=== PATIENT | male | born 1950 | race Caucasian/White ===

== ENCOUNTER → 2017-01-06 | Outpatient (CLI) | payer OTHER ==
[~2017-01-06] MED LIST: ACCUPRIL40 MG PO; ADVIL PM CAPLE1 EACH PO; ALLEGRA180 MG PO; ALPRAZOLAM PO; ASPIRIN81 M1 PO; ASPIRIN81 M2 PO; CALCIUM 600 + D1 TAB PO; CRESTOR PO; FERRO-TIME325 MG PO; FIBER500 MG PO; FISH OIL 1,0001 CAP PO; FLOMAX0.4 M1 PO; HYDROCHLOROTHIA25 MG PO; LOVENOX40 MG/0.4 INJ; MEVACOR PO; NASACORT AQ16.5 GM; NORCO 10/3251 TAB DOB; OMEPRAZOLE20 M1 PO; PERCOCET 10/3251 TAB PO; PROBIOTIC1 EAC2 PO; TRICOR134 MG PO; TRIGLIDE160 M1 PO; VITAMIN E400 UNI1 PO; XARELTO10 MG PO; ZYLOPRIM100 MG PO
--- NOTE | ~2017-01-06 | US85 ---
[facility] A Service of [facility] & [facility] RADIOLOGY TEXT RESULTS PATIENT: MADELEINE PINA LOCATION: CNIV : 46 UNIT #: [id number] AGE: [address]: Blake Evans MD SEX: M ORDER DR: [id number] [facility] [address] [place], [place] [address] [id number] O MR#: [id number] Acc #: [id number] NAME: MADELEINE PINA. : 1950 SEX: M STUDY DATE/TIME: 01/06/2017 16:30 UNIT: CNIV ROOM: STUDY DESCRIPTION: FAUSTINO Tom Unilat or Ltd Stdy Attending Physician: Blake Evans M.D. Referring Physician: Blake Evans M.D. Ordering Physician: Blkae Evans M.D. Primary Care Physician: Blake Evans M.D. MEDICAL IMAGING REPORT This report is preliminary unless electronic signature is present EXAM Right lower extremity venous duplex HISTORY Right lower extremity pain in the calf for 4 days. Knot in the right calf on the medial side. FINDINGS Venous duplex imaging of the right lower extremity reveals patent right femoral, popliteal, tibial, and peroneal veins with normal venous filling in all of the visualized veins. No evidence of thrombosis of the deep veins is seen. On the medial aspect of the mid calf in the popliteal area, there is a 6-7 mm area which is hyperechoic with mixed echoes. This is not compressible. This is subcutaneous. IMPRESSION No evidence of DVT is seen in the right lower extremity. Possible thrombosed varicose veins are seen on the right medial calf. Correlation is recommended for a possible small hematoma. Dictated by... Jason Mcdaniels M.D. THIS IS AN ELECTRONICALLY VERIFIED REPORT Jason Mcdaniels M.D. at 01/09/2017 10:50 AM /des TD: 01/07/2017 09:50 JOB #: [id number] [facility] A Service of [facility] & [facility] RADIOLOGY TEXT RESULTS PATIENT: MADELEINE PINA LOCATION: [facility] #: [id number] : [birth year] UNIT #: [id number] AGE: [address]: Blake Evans MD SEX: M ORDER DR: MEDICAL IMAGING REPORT Page 1 of 1 COPY
== END | disposition home or self-care (01) ==
LOC: CNIV 16:08
DX: M79.89 Other specified soft tissue disorders (principal); R22.41 Localized swelling, mass and lump, right lower limb
CPT/HCPCS: 93971

== ENCOUNTER 2017-03-16 19:01 | Emergency (ER) | payer OTHER ==
[~2017-03-16] VITALS: Ht 160 cm; Wt 77.1 kg
--- NOTE | ~2017-03-16 | CR20 ---
[facility] A Service of [facility] & [facility] RADIOLOGY TEXT RESULTS PATIENT: MADELEINE PINA LOCATION: [facility] : 46 UNIT #: [id number] AGE: [address]: Karma Ray APRN SEX: M ORDER DR: [id number] [facility] [address] [place], [place] [address] [id number] MR#: [id number] Acc #: [id number] NAME: MADELEINE PINA. : 1950 SEX: M STUDY DATE/TIME: 03/16/2017 22:08 UNIT: [facility] ROOM: STUDY DESCRIPTION: CR Ankle Min 3 Views Lt Attending Physician: Karma Ray A.P.R.N. Ordering Physician: Karma Ray A.P.R.N. Primary Care Physician: Blake Evans M.D. MEDICAL IMAGING REPORT This report is preliminary unless electronic signature is present EXAM Left ankle INDICATION Left ankle swelling and pain. FINDINGS 3 views of the left ankle without comparison. There is no acute fracture or dislocation. There is some medial soft tissue swelling. No foreign body. IMPRESSION Medial soft tissue swelling. Dictated by... Ludwig Smith M.D. THIS IS AN ELECTRONICALLY VERIFIED REPORT Ludwig Smith M.D. at 03/17/2017 10:12 AM JARVIS/des TD: 03/17/2017 09:34 JOB #: [id number] MEDICAL IMAGING REPORT Page 1 of 1 COPY
== END 2017-03-16 23:20 | disposition home or self-care (01) ==
LOC: CED 19:01 → CFTX 19:01
DX: S90.02XA Contusion of left ankle, initial encounter (principal); I10 Essential (primary) hypertension; E78.5 Hyperlipidemia, unspecified; F17.200 Nicotine dependence, unspecified, uncomplicated; Z79.899 Other long term (current) drug therapy; X58.XXXA Exposure to other specified factors, initial encounter; Y92.9 Unspecified place or not applicable
CPT/HCPCS: 29515; 73610; 99284